=== PATIENT | male | born 1995 | race Hispanic/Latino ===

== ENCOUNTER 2021-07-14 08:19 | Emergency (ER) | payer OTHER ==
--- OUTSIDE RECORDS SUMMARY | 2021-07-14 08:21 | XMS REPORT | Continuity of Care Document ---
:1995 Author Organization [facility] t Address [address] [place] [address] Care Team Providers Name Role Phone Pcp, Does Not Have A Primary Care Physician Angelique Jin MD Attending Clinician Payers Payer Name Policy Type Policy Number Effective Date Expiration Date S ource Problems Condition Condition Condition Status Onset Resolution Last Treating Co mments Source Name Details Category Date Date Treatment Clinician Date No known No known Disease Unive rs active active ity of problems problems [facility] Allergies, Adverse Reactions, Alerts Allergy Allergy Status Severity Reaction(s) Onset Inactive Treating Comm ents Source Name Type Date Date Clinician No Known DA Active U [facility] Allergie 5-20 Clear s 00:00: [place] 00 [facility] NO KNOWN Drug Active Univers ALLERGIE Class ity of S [facility] Social History Social Habit Start Date Stop Date Quantity Comments Source History [facility] University o f Alcohol Std [place] [facility] Dr[facility] Branch History [facility] University o f Alcohol Binge [place] [facility] Branch Exposure to Not sure University of SARS-CoV-2 [facility] (event) Branch Tobacco use and 2021-03-25 2021-03-25 Never used Universit y of exposure 00:00:00 00:00:00 [facility] Alcohol intake 2021-03-25 2021-03-25 Ex-drinker University of 00:00:00 00:00:00 (finding) [place] [facility] History SDOH 2019-09-12 2019-09-12 1 University o f Alcohol Frequency 00:00:00 00:00:00 [facility] Sex Assigned At [birth year] Universit y of 00:00:00 00:00:00 [facility] Smoking Status Start Date Stop Date Source Never smoker [facility] Medications Ordered Filled Start Stop Current Ordering Indication Dosage Frequency Signature Comments Components Source Medication Medication Date Date Medication? Clinician (SIG) Name Name acyclovir Yes [id number] 800mg Take 4 Univers 200 mg 8-25 capsules ity of capsule 00:00[place] (five[place] Medical times Branch daily. cephALEXin Yes [id number] 250mg Take 1 Univers (KEFLEX) 8-25 capsule by ity o f 250 mg 00:00: mouth [place] capsule 00 every 8 Medical (eight) Branch hours. Immunizations Ordered Filled Immunization Date Status Comments Sour e Immunization Name Name TDAP (ADACEL) 2015-05-13 Completed [facility] VACCINE 00:00:00 [facility] Vital Signs Vital Name Observation Time Observation Value Comments Source Systolic blood 2021-03-25 12:39:53 150 mm[Hg] [facility] Diastolic blood 2021-03-25 12:39:53 94 mm[Hg] [facility] Heart rate 2021-03-25 12:39:53 81 /min [facility] Body temperature 2021-03-25 12:39:53 36.61 Qi [facility] Respiratory rate 2021-03-25 12:23:00 16 /min [facility] Body weight 2021-03-25 12:23:[address] [facility] BMI 2021-03-25 12:23:00 27.62 kg/m2 [facility] Oxygen saturation in 2021-03-25 12:23:00 97 /min [facility] Arterial blood by [facility] Pulse oximetry Branch Procedures Procedure Date / Time Performing Clinician Source Performed ED SPLINT APPLICATION 2021-03-25 14:20:00 Sherry Jin [facility] XR HAND <3 VW RIGHT 2021-03-25 13:16:[address] [facility] URINALYSIS 2021-03-25 13:00:00 Sherry Jin [facility] CONSENT/REFUSAL FOR 2021-03-25 12:21:10 Doctor Unassigned, No Un [facility] DIAGNOSIS AND TREATMENT Name Medical Branch Encounters Start End Encounter Admission Attending Care Care Encounter Source Date/Time Date/Time Type Type Clinicians Facility Department ID 2021-06-01 Emergency [facility] [id number] [facility] 2021-03-25 2021-03-25 Emergency Davin, TRAUMA [id number] [facility] 07:24:00 09:55:00 Sherry Merino [place] [id number] [facility] [id number] [facility] [id number] [address] Results Test Test Test Results Result Source Description Time Comments Comments Splint 2021-03- Sherry Jin MD ? U niversity of Application ? 03/25/2021 ?9:37 [facility] 14:20:00 [facility] ApplicationPerformed by: Sherry Jin MDAuthorized by: Sherry Jin MD Consent: ?Consent obtained: ?Verbal ?Consent given by: ?Patient ?Risks discussed: ?Discoloration, numbness, pain and swelling ?Alternatives discussed: ?No treatmentPre-procedure details: ?Sensation: ?Normal ?Skin color: ?PinkProcedure details: ?Laterality: ?Right ?Location: ?Hand ?Hand: ?R hand ?Strapping: no ? ?Cast type: ?Finger ?Splint type: ?Finger ?Supplies: ?Aluminum splint and elastic bandagePost-procedure details: ?Pain: ?Unchanged ?Sensation: ?Normal ?Skin color: ?Normal ?Patient tolerance of procedure: ?Tolerated well, no immediate complications XR HAND <3 VW 2021-03- Healing index finger University of RIGHT 25 metacarpal fracture. Chinmaygretchen s [facility] 13:43:10 Preliminary Report Branch Dictated by Resident: Syed Mueller I, Elmer Ballesteros MD., have reviewed this study and agree with the abovereport.EXAM: XR HAND <3 VW RIGHT HISTORY: 25 years-old Male; pain after punching 6x6 . "hand pain x 2 wksfrom punching wood. Also c/o blister under head of penis x 1 wk" COMPARISON: None FINDINGS: Radiographs of the right hand were obtained. A minimally displaced spiralfracture of the index finger metacarpal metadiaphysis displays bridgingcallus formation. The alignment and joint spaces are maintained. Mild softtissue swelling is seen over the dorsal hand. [facility], Radiant Results Inft User - 03/25/2021 8:44 AM CDT EXAM: XR HAND <3 VW RIGHTHISTORY: 25 years-old Male; pain after punching 6x6 . "hand pain x 2 wksfrom punching wood. Also c/o blister under head of penis x 1 wk"COMPARISON: NoneFINDINGS:Radiographs of the right hand were obtained. A minimally displaced spiralfracture of the index finger metacarpal metadiaphysis displays bridgingcallus formation. The alignment and joint spaces are maintained. Mild softtissue swelling is seen over the dorsal hand. IMPRESSIONHealing index finger metacarpal fracture.Preliminary Report Dictated by Resident: Elmer Ballard MD., have reviewed this study and agree with the abovereport. URINALYSIS 2021-03-25 13:26:26 Test Item Value Reference Range Interpretation Comme nts APPEARANCE (test code = Clear Clear 5380773629) COLOR (test code = 2424090136) Yellow Yellow PH (test code = 8787474512) 4.8-8.0 SP GRAVITY (test code = 1.003-1.030 2080207044) GLU U QUAL (test code = Normal Normal 7872606606) BLOOD (test code = 9444657908) 1+ Negative A KETONES (test code = 2529607153) Negative Negative PROTEIN (test code = 2887-8) Negative Negative UROBILIN (test code = Normal Normal 9558157841) BILIRUBIN (test code = Negative Negative 0014161215) NITRITE (test code = 9678915062) Negative Negative LEUK ANDERSON (test code = 25/uL Negative A 2786347540) RBC/HPF (test code = 6422872833) See_Comment [Automated message] The system which ge nerated this result transmit chance reference range: 0 - 3 HP F. The reference range was not used to interpret th is result as normal/abnormal . WBC/HPF (test code = 1123200168) See_Comment H [Automated message] The system which [employer] nerated this result transmit chance reference range: 0 - 5 HP F. The reference range was not used to interpret th is result as normal/abnormal . BACTERIA (test code = Negative Negative 4404310656) MUCOUS (test code = 2293660082) Slight Negative LPF A SQ EPITH (test code = <1 See_Comment [Auto mated message] The 1185585768) system which [employer] nerated this result transmit chance reference range: <=2 HPF. The reference range was not u sed to interpret this result as normal/abnormal . Lab Interpretation (test code = Abnormal 47826-7) [facility] [id number] 21:31:00 Test Item Value Reference Range Interpretation Comments SODIUM (test code = NA) 133 mmol/l 134.0-147.0 L POTASSIUM (test code = K) 3.7 mmol/L 3.6-5.2 N CHLORIDE (test code = CL) 98 mmol/l 98.0-107.0 N CARBON DIOXIDE (test code = CO2) 26.0 mmol/l 21.0-33.0 N ANION GAP (test code = GAP) 12.7 0-20 N GLUCOSE (test code = GLU) 148 mg/dl 70.0-110.0 H BLOOD UREA NITROGEN (test code = 15 mg/dl 7.0-18.0 N BUN) CREATININE (test code = CREAT) 1.05 mg/dL 0.60-1.30 N GFR NON BLACK (test code = 91 mL/min 110-120 L GFRNONBLACK) GFR BLACK (test code = GFRBLACK) 111 mL/min 133-145 L TOTAL PROTEIN (test code = PROT) 7.3 GM/DL 6.0-8.1 N ALBUMIN (test code = ALB) 3.5 gm/dL 3.2-4.7 N CALCIUM (test code = CA) 8.3 mg/dl 8.0-10.5 N BILIRUBIN TOTAL (test code = 0.2 mg/dl 0.0-1.0 N BILT) SGOT/AST (test code = AST) 27 Units/L 15.0-37.0 N SGPT/ALT (test code = ALT) 35 Units/L 12.0-78.0 N ALKALINE PHOSPHATASE TOTAL (test 57 Units/L 50.0-136.0 N code = ALKP) COMPREHENSIVE METABOLIC [id number] 21:23:00 Test Item Value Reference Range Interpretation Comments SODIUM (test code = NA) 133 mmol/l 134.0-147.0 L POTASSIUM (test code = K) 3.7 mmol/L 3.6-5.2 N CHLORIDE (test code = CL) 98 mmol/l 98.0-107.0 N CARBON DIOXIDE (test code = CO2) 26.0 mmol/l 21.0-33.0 N ANION GAP (test code = GAP) 12.7 0-20 N GLUCOSE (test code = GLU) mg/dl 70.0-110.0 BLOOD UREA NITROGEN (test code = mg/dl 7.0-18.0 BUN) CREATININE (test code = CREAT) mg/dL 0.60-1.30 GFR NON BLACK (test code = mL/min 110-120 GFRNONBLACK) GFR BLACK (test code = GFRBLACK) mL/min 133-145 TOTAL PROTEIN (test code = PROT) gm/dL 6.4-8.2 ALBUMIN (test code = ALB) gm/dl 3.2-4.7 CALCIUM (test code = CA) mg/dl 8.0-10.5 BILIRUBIN TOTAL (test code = mg/dl 0.0-1.0 BILT) SGOT/AST (test code = AST) Units/L 15.0-37.0 SGPT/ALT (test code = ALT) Units/L 12.0-78.0 ALKALINE PHOSPHATASE TOTAL (test Units/L 50.0-136.0 code = ALKP) CBC W/AUTO [id number] 21:18:00 Test Item Value Reference Range Interpretation Comments WHITE BLOOD CELL (test code = 14.6 K/mm3 4.5-11.0 H WBC) RED BLOOD CELL (test code = 4.98 M/mm3 4.40-5.90 N RBC) HEMOGLOBIN (test code = HGB) 15.8 gm/dL 13.0-17.0 N HEMATOCRIT (test code = HCT) 44.9 % 36.0-48.0 N MEAN CELL VOLUME (test code = 90.2 UM3 80.0-94.0 N MCV) MEAN CELL HGB (test code = MCH) 31.7 UUG 25.5-32.5 N MEAN CELL HGB CONCETRATION 35.2 gm/dL 29.0-35.5 N (test code = MCHC) RED CELL DISTRIBUTION WIDTH 11.7 % 11.5-15.0 N (test code = RDW) RED CELL DISTRIBUTION WIDTH SD 38.5 fL 34.8-50.2 N (test code = RDW-SD) PLATELET COUNT (test code = 185 K/mm3 150-400 N PLT) MEAN PLATELET VOLUME (test code 10.1 fl 7.4-10.4 N = MPV) NEUTROPHIL % (test code = NT%) 90.5 % 49.0-76.0 H IMMATURE GRANULOCYTE % (test 0.5 % 0.0-0.4 H code = IG%) LYMPHOCYTE % (test code = LY%) 3.4 % 23.0-38.0 L MONOCYTE % (test code = MO%) 5.4 % 1.0-10.0 N EOSINOPHIL % (test code = EO%) 0.1 % 1.0-5.0 L BASOPHIL % (test code = BA%) 0.1 % 0.0-1.0 N NEUTROPHIL # (test code = NT#) 13.2 K/mm3 2.4-6.3 H IMMATURE GRANULOCYTE # (test 0.07 x10 3/uL 0.00-0.07 N code = IG#) LYMPHOCYTE # (test code = LY#) 0.5 K/mm3 1.2-4.0 L MONOCYTE # (test code = MO#) 0.8 K/mm3 0.0-0.6 H EOSINOPHIL # (test code = EO#) 0.0 K/MM3 0.0-0.7 N BASOPHIL # (test code = BA#) 0.0 K/mm3 0.0-0.2 N - XR CHEST 2 [id number] 20:43:00 FAX: Yonatan Chacko [phone] [place]: EM St: REG Name: DAWSON CUADRA [facility] : 1995 Age/S: 23/M [address] [facility] Unit[facility] [id number] Loc: [place], [place] Phys: SrinivasaYonatan [employer] [address] Acct: [id number] Dis Date: Status: REG ER PHONE #: [phone] Exam Date: 01/08/20192024 FAX #: [phone] Reason: cough / fever EXAMS: CPT CODE: [id number] XR CHEST 2 V 41371 EXAM: Chest 2 views. Location code:J9 HISTORY: Cough COMPARISON: None available FINDINGS: PA and lateral views of the chest were obtained. The lungs are clear. There are no pleural effusions or pneumothorax. The cardiac silhouette is normal in size and contour. Aorta, pulmonary vasculature and mediastinum are normal. Visualized skeletal structures are within normal limits. IMPRESSION: No active disease in the chest. at 2042 Reported and signed by: Dejuan Alvarado M.D. CC: Yonatan Bernabe NP Technologist: DOMINIC TOMAS Trnantwonrd Date/Time/By: 01/08/2019 (2042) : By: [email or web address] PAGE 1 Signed Report FAX: Yonatan Chacko [phone] [place]: St: REG Name: DAWSON CUADRA [facility] : 1995 Age/S: 23/M [address] [facility] [employer] [facility] Unit #: [id number] Loc: [place], [place] Phys: Yonatan Bernabe [employer] [id number] Acct: [id number] Dis Date: Status: REG ER PHONE #: [phone] Exam Date: 01/08/20192024 FAX #: [phone] Reason: cough / fever EXAMS: CPT CODE: [id number] XR CHEST 2 V 34434 <Continued> Orig Print D/T: S: 01/08/2019 (2045) PAGE 2 Signed Report
[2021-07-14] MEDS ORDERED: KETOROLAC 30 MG/ML INJ ONE (09:26)
--- NOTE | 2021-07-14 10:14 | RAD REPORT ---
EXAM DESCRIPTION: RAD - Wrist Right 3 View - 07/14/2021 9:59 am CLINICAL HISTORY: PAIN, nontraumatic COMPARISON: No comparisons FINDINGS: No fracture is identified. There is no dislocation or periosteal reaction noted. Epiphyses and growth plates are normal in appearance. No foreign body or other soft tissue abnormality. IMPRESSION: Negative right wrist examination.
--- NOTE | 2021-07-14 11:03 | EDPHYS ---
Physician Documentation [facility] Name: Lele Bacon Age: 25 yrs Sex: Male : 1995 Arrival Date: 07/14/2021 Time: 08:26 Bed 11 Private MD: ED Physician Dejuan Barton HPI: 07/14 10:44 This 25 yrs old Male presents to ER via Ambulatory with complaints of Wrist jmm Pain. 10:44 The patient or guardian reports pain. Onset: The symptoms/episode began/occurred jmm gradually, 5 day(s) ago. 10:46 Modifying factors: The symptoms are alleviated by nothing, the symptoms are aggravated jmm by nothing. Associated signs and symptoms: Pertinent negatives: fever, numbness distally, tingling distally. Njlw-[id number]-[id number] male with no chronic medical conditions presents emerged part with complaints of right wrist pain beginning approximately 5 days ago. Patient denies known injury. Patient states that he does perform strenuous activity at work.. Historical: - Allergies: 08:40 No Known Allergies; [facility] - Home Meds: 08:40 None [Active]; [facility] - PMHx: 08:40 None; [facility] - Immunization history:: Client reports receiving the 2nd dose of the Covid vaccine. - Social history:: Smoking status: Patient denies any tobacco usage or history of. ROS: 10:46 Constitutional: Negative for fever, chills, and weight loss, Cardiovascular: Negative jmm for chest pain, palpitations, and edema, Respiratory: Negative for shortness of breath, cough, wheezing, and pleuritic chest pain. 10:46 MS/extremity: Positive for pain. 10:46 All other systems are negative. Exam: 10:46 Constitutional: This is a well developed, well nourished patient who is awake, alert, jmm and in no acute distress. Head/Face: atraumatic. Eyes: EOMI, no conjunctival erythema appreciated ENT: Moist Mucus Membranes Neck: Trachea midline, Supple Chest/axilla: Normal chest wall appearance and motion. Cardiovascular: Regular rate and rhythm. No edema appreciated Respiratory: Normal respirations, no respiratory distress appreciated Abdomen/GI: Non distended, soft Back: Normal ROM Skin: General appearance color normal 10:46 Musculoskeletal/extremity: ROM: intact in all extremities, Positive Enio test, pain on palpation of the distal right radial region, no snuffbox tenderness, neurovascular intact. 10:46 Skin: Appearance: Color: normal in color. 10:46 Neuro: Orientation: is normal, Mentation: is normal, Memory: is normal. 10:46 Psych: Behavior/mood is pleasant, cooperative. Vital Signs: 08:36 BP 130 / 72; Pulse 67; Resp 17; Temp 97.6(O); Pulse Ox 100% ; Weight 108.86 kg; Height 6 6 ft. 1 in. (185.42 cm); Pain 5/10; 11:09 BP 121 / 86; Pulse 55; Resp 18; Pulse Ox 99% on R/A; ww 08:36 Body Mass Index 31.66 (108.86 kg, 185.42 cm) [facility] MDM: 09:19 Patient medically screened. [facility] 11:02 Data reviewed: vital signs, nurses notes. Counseling: I had a detailed discussion with [facility] the patient and/or guardian regarding: the historical points, exam findings, and any diagnostic results supporting the discharge/admit diagnosis, radiology results, the need for outpatient follow up, to return to the emergency department if symptoms worsen or persist or if there are any questions or concerns that arise at home. 07/14 09:42 Order name: Wrist Right 3 View XRAY; Complete Time: 10:15 [facility] 07/14 09:21 Order name: Thumb Spica Splint; Complete Time: 09:24 [facility] Administered Medications: 09:35 Drug: Ketorolac 30 mg Route: IM; Site: right deltoid; 11:11 Follow up: Response: No adverse reaction; Marked relief of symptoms; Pain is decreased ww Disposition: 14:05 Co-signature as Attending Physician, Dejuan Barton MD I agree with the assessment and rn plan of care. Attestation: The patient's history, exam findings, diagnostics, and a summary of any interventions or procedures was reviewed in detail with Eitan BENEDICT. Disposition Summary: 07/14/21 11:02 Discharge Ordered Location: Home [facility] Condition: Stable [facility] Diagnosis - Tendonitis of the Wrist [facility] Followup: [facility] - With: Casey Pompa MD - When: 2 - 3 days - Reason: Recheck today's complaints, Continuance of care, Re-evaluation by your physician Discharge Instructions: - Discharge Summary Sheet [facility] - De Querdesmond's Tenosynovitis [facility] Forms: - Medication Reconciliation Form jm - Thank You Letter tanner - Antibiotic Education maria eugenia - Prescription Opioid Use [facility] Prescriptions: - Ibuprofen 800 mg Oral Tablet - take 1 tablet by ORAL route every 8 hours As needed take with food; 30 tablet; tanner Refills: 0, Product Selection Permitted Signatures: Dispatcher [employer] EDPA Eitan Archer PA PA Dejuan Gil MD MD rn Hastedt, Jennifer RN RN jh Anais Morgan RN RN ww Corrections: (The following items were deleted from the chart) 09:58 09:21 Wrist Left 3 View+RAD.RAD.BRZ ordered. [facility] 10:48 10:44 Onset: The symptoms/episode began/occurred gradually, 3 day(s) ago, tanner hart
--- NOTE | 2021-07-14 11:03 | ER ---
Nurse's Notes [facility] Name: Lele Bacon Age: 25 yrs Sex: Male : 1995 Arrival Date: 07/14/2021 Time: 08:26 Bed 11 Private MD: Diagnosis: Tendonitis of the Wrist Presentation: 07/14 08:36 Chief complaint: Patient states: rt wrist pain x 4-5 days. 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 taking Motrin which helps pain. Coronavirus screen: Vaccine status: Patient reports receiving the 2nd dose of the covid vaccine. Client denies travel out of the [place] in the last 14 days. Ebola Screen: No symptoms or risks identified at this time. Initial Sepsis Screen: Does the patient meet any 2 criteria? No. Patient's initial sepsis screen is negative. Does the patient have a suspected source of infection? No. Patient's initial sepsis screen is negative. Risk Assessment: Do you want to hurt yourself or someone else? Patient reports no desire to harm self or others. Onset of symptoms was July 08, 2021. 08:36 Method Of Arrival: Ambulatory [facility] 08:36 Acuity: TOMI 4 [facility] Triage Assessment: 08:40 General: Appears in no apparent distress. Behavior is calm, cooperative. Pain: [facility] Complains of pain in right wrist Pain does not radiate. Pain currently is 5 out of 10 on a pain scale. Quality of pain is described as sharp, Is continuous, Aggravated by movement. Historical: - Allergies: 08:40 No Known Allergies; [facility] - Home Meds: 08:40 None [Active]; [facility] - PMHx: 08:40 None; [facility] - Immunization history:: Client reports receiving the 2nd dose of the Covid vaccine. - Social history:: Smoking status: Patient denies any tobacco usage or history of. Screenin:39 Abuse screen: Denies threats or abuse. Denies injuries from another. Nutritional ww screening: No deficits noted. Tuberculosis screening: No symptoms or risk factors identified. Fall Risk None identified. Assessment: 09:36 General: Appears in no apparent distress. well groomed, well developed, well nourished, ww Behavior is calm, cooperative, appropriate for age, Denies. Pain: Complains of pain in right arm Pain does not radiate. Pain Quality of pain is described as aching, Pain began 2-3 days ago. Tuesday07/11/2021 Alleviated by Aggravated by. Neuro: No deficits noted. Level of Consciousness is awake, alert, obeys commands, Oriented to person, place, time, situation, Appropriate for age Student Services Rep are Moves all extremities. Full function Speech is normal, Cardiovascular: No deficits noted. Denies chest pain, shortness of breath. Respiratory: No deficits noted. Airway is patent Respiratory effort is even, unlabored, Respiratory pattern is regular, symmetrical. GI: No deficits noted. No signs and/or symptoms were reported involving the gastrointestinal system. : No deficits noted. No signs and/or symptoms were reported regarding the genitourinary system. Derm: No deficits noted. No signs and/or symptoms reported regarding the dermatologic system. Musculoskeletal: Circulation, motion, and sensation intact. Capillary refill is > 3 seconds, Range of motion: intact in all extremities, Reports pain in right arm since Tuesday07/11/2021. Recently broke right wrist and had a splint in place. . 10:52 Reassessment: Patient appears in no apparent distress at this time. Patient states ss feeling better. Patient states symptoms have improved. Vital Signs: 08:36 BP 130 / 72; Pulse 67; Resp 17; Temp 97.6(O); Pulse Ox 100% ; Weight 108.86 kg; Height jh6 6 ft. 1 in. (185.42 cm); Pain 5/10; 11:09 BP 121 / 86; Pulse 55; Resp 18; Pulse Ox 99% on R/A; ww 08:36 Body Mass Index 31.66 (108.86 kg, 185.42 cm) [facility] ED Course: 08:26 Patient arrived in ED. ds1 08:39 Triage completed. jh6 08:41 Arm band placed on left wrist. 6 09:08 Eitan Archer PA is PHCP. jmm 09:08 Dejuan Barton MD is Attending Physician. jmm 09:22 Lali Hobbs, SONA is Primary Nurse. ss 09:39 Patient has correct armband on for positive identification. Bed in low position. Call ww light in reach. Door closed. Noise minimized. 09:59 Wrist Right 3 View XRAY In Process Unspecified. EDMS 10:02 Orthoglass splint: Thumb spica splint applied on right forearm. 5 11:02 Casey Pompa MD is Referral Physician. jmm 11:10 Patient did not have IV access during this emergency room visit. ww 11:10 No provider procedures requiring assistance completed. ww Administered Medications: 09:35 Drug: Ketorolac 30 mg Route: IM; Site: right deltoid; ww 11:11 Follow up: Response: No adverse reaction; Marked relief of symptoms; Pain is decreased ww Outcome: 11: [facility] 11:09 Discharged to home ambulatory. ww 11: Condition: stable 11:09 Discharge instructions given to patient, Instructed on discharge instructions, follow up and referral plans. medication usage, safety practices, Demonstrated understanding of instructions, medications, Prescriptions given X 1. 11:12 Patient left the ED. ww Signatures: Dispatcher [employer] EDMS Eitan Archer PA PA Ama Trinh ds1 Lali Hobbs RN RN Sandi Narayanan [facility] Ana Bills RN RN 6 Anais Morgan RN RN Corrections: (The following items were deleted from the chart) 09:42 09:24 Velcro wrist splint applied to left wrist. mh5 mh5 10:02 09:42 Velcro wrist splint applied to right wrist. 5 mh5
[2021-07-14 11:16] VITALS: TEMP 97.6
[2021-07-14 11:19] VITALS: BP 121/86; O2SAT 99
== END 2021-07-14 11:12 | disposition home or self-care (01) ==
LOC: ER 08:19
DX: M65.9 Synovitis and tenosynovitis, unspecified (principal)
CPT/HCPCS: 96372; 99284